=== PATIENT | male | born 1960 | race Caucasian/White ===

== ENCOUNTER 2020-12-23 17:18 | Emergency (ER) | payer BC, MEDICARE ==
[~2020-12-23] VITALS: Ht 180.3 cm; Wt 90.7 kg
[2020-12-23 17:22] VITALS: BP 110/84
--- NOTE | 2020-12-23 17:34 | NUR ---
Patient ambulated to bed 4 with family. RN evaluating patient at bedside.
--- NOTE | 2020-12-23 17:39 | NUR ---
60 YO M BIB C/O ABRASION, BILATERAL ARM S/P FALL X TODAY. DENIES LOC. UPON ASSESSMENT, VSS, AOX4. HR NORMAL, REGULAR RHYTHM. CLEAR BREATH SOUNDS. 5/5 STRENGTH ON UPPER AND LOWER EXTREMITIES. WITH NOTED ABRASION ON LEFT ELBOW, RIGHT LOWER ARM, WITH ACTIVE BLEEDING. PATIENT SITTING ON BED COMFORTABLY. ERMD MADE AWARE OF PT STATUS. PMH: ESRD WITH DIALYSIS ( M,W,F), CHF, HTN, DEFIBULATOR, PAD NKA
--- NOTE | 2020-12-23 18:13 | NUR ---
APPLIED DRESSING TO BILATERAL ARMS WITHOUT ANY ISSUES
[2020-12-23] MEDS: BACITRACIN OINT 500 UNITS/GM PKT TP ONE (18:33)
[2020-12-23 18:34] VITALS: BP 110/84
--- NOTE | 2020-12-23 18:35 | NUR ---
Patient discharged with v/s stable. Written and verbal after care instructions given and explained. Patient alert, oriented and verbalized understanding of instructions. Ambulatory with walker. All questions addressed prior to discharge. ID band removed. Patient advised to follow up with PMD. Rx of BACITRACIN given. Patient educated on indication of medication including possible reaction and side effects. Opportunity to ask questions provided and answered.
== END 2020-12-23 18:30 | disposition home or self-care (01) ==
LOC: MED 17:18
DX: S60.512A Abrasion of left hand, initial encounter (principal); S60.511A Abrasion of right hand, initial encounter; W01.10XA Fall on same level from slipping, tripping and stumbling with subsequent striking against unspecified object, initial encounter; Y93.89 Activity, other specified; Y92.89 Other specified places as the place of occurrence of the external cause; Y99.8 Other external cause status
CPT/HCPCS: 99282